=== PATIENT | male | born 1995 | race Caucasian/White ===

== ENCOUNTER 2016-11-28 06:22 | Emergency (ER) | payer OTHER ==
[2016-11-28 06:37] VITALS: TEMP 98; BMI 48.3
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
[2016-11-28 07:14] LABS: BASOPHIL 0.6 % (0-2.0); EOSINOPHIL 2.2 % (0-4.5); MCH 30.2 pg (25.7-33.7); MEAN CELL VOLUME 88.9 fl (80-96); MEAN PLT VOLUME 7.3 fl (7.5-11.1); NEUTROPHILS 57.3 % (42.8-82.8); PLATELET COUNT 278 K/MM3 (134-434); RDW 14.2 % (11.9-15.9); WHITE BLOOD COUNT 5.5 K/mm3 (4.0-10.0)
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
[2016-11-28 07:46] LABS: INR 1.03 (0.82-1.09); PROTHROMBIN TIME (PATIENT) 11.3 SEC (9.98-11.88)
[2016-11-28] MEDS ORDERED: ACETAMINOPHEN 325 MG TABLET (FP) PO ONE (08:49)
[2016-11-28] MEDS ORDERED: SODIUM CHLORIDE 0.9% 1000 ML INFUS.BAG IV ONE (08:49)
[2016-11-28] MEDS ORDERED: MAG HYDROX/AL HYDROX/SIMETH 30 ML UNIT-DOSE CUP PO ONE (08:49)
[2016-11-28] MEDS ORDERED: MAG HYDROX/AL HYDROX/SIMETH 30 ML UNIT-DOSE CUP ONE (09:01)
[2016-11-28] MEDS ORDERED: ACETAMINOPHEN 325 MG TABLET (FP) ONE (09:01)
[2016-11-28 09:40] LABS: URINE MARIJUANA THC NEGATIVE ng/ml (CUTOFF=50)
--- NOTE | 2016-11-28 09:52 | EKG ---
Test Reason : Blood Pressure : / mmHG Vent. Rate : 070 BPM Atrial Rate : 070 BPM P-R Int : 168 ms QRS Dur : 084 ms QT Int : 362 ms P-R-T Axes : 045 057 041 degrees QTc Int : 390 ms NORMAL SINUS RHYTHM NORMAL ECG NO PREVIOUS ECGS AVAILABLE Confirmed by TASHA ARCOS MD ([id number]) on 11/28/2016 9:52:07 AM Referred By: Confirmed By:TASHA ARCOS MD
[2016-11-28 10:14] LABS: ALBUMIN 4.1 g/dl (3.4-5.0); ANION GAP 11 (8-16); BILIRUBIN,TOTAL 0.4 mg/dL (0.2-1.0); CALCIUM 8.8 mg/dL (8.5-10.1); CO2 22 mmol/L (21-32); CREATININE 0.7 mg/dL (0.7-1.3); GLUCOSE,RANDOM 89 mg/dL (74-106); SGPT/ALT 33 U/L (12-78); TOT PROT 7.5 g/dl (6.4-8.2)
[2016-11-28 10:16] LABS: ALK PHOS 124 U/L (45-117); CPK 260 IU/L (39-308); TROPONIN I < 0.02 ng/ml (0.00-0.05)
[2016-11-28 10:22] LABS: SGOT/AST 33 U/L (15-37)
[2016-11-28 11:53] VITALS: BP 143/62; PULSE 75
== END 2016-11-28 11:53 | disposition home or self-care (01) ==
LOC: JER 06:22
DX: G44.319 Acute post-traumatic headache, not intractable (principal); R10.12 Left upper quadrant pain; V47.5XXA Car driver injured in collision with fixed or stationary object in traffic accident, initial encounter; Y92.414 Local residential or business street as the place of occurrence of the external cause; W22.11XA Striking against or struck by driver side automobile airbag, initial encounter; Y93.89 Activity, other specified; Y99.8 Other external cause status
CPT/HCPCS: 36415; 70450-TC; 72125-TC; 74176-TC; 80053; 80307; 82553; 84484; 85025; 85610; 85730; 93005; 93010; 99283-25